=== PATIENT | female | born 1970 | race Caucasian/White ===

== ENCOUNTER 2024-01-19 05:04 | Emergency (ER) | payer BC, SELFPAY ==
[2024-01-19] VITALS (8 sets, daily range): BP systolic 90–124; BP diastolic 65–80; BMI 21.0
--- NOTE | 2024-01-19 07:17 | ED.GENMED ---
History of Present Illness
General
Chief Complaint: Fall
Time Seen by Provider: 01/19/24 07:06
Travel History
Have you had any contact with someone who has COVID-19?: No
Do you have any symptoms of coronavirus? Fever > 100 degrees, chills, cough, shortness of breath, sore throat, loss of taste or smell, muscle aches, or headache?: No
History of Present Illness
History of Present Illness:
53-year-old previously healthy female presents to the emergency department for evaluation of left chest wall and left gluteal pain after falling down multiple carpeted steps last night. Landed directly on the left thoracic back as well as the left
buttock. She is able to ambulate. Pain is somewhat pleuritic in nature, does not radiate toward the front. Does not take any anticoagulants. Denies any head strike.
Review of Systems
Review of Systems
Allergies reviewed?: Yes
All Other Systems: ROS reviewed and negative except as documented in HPI and ROS
Phy Exam
Physical Exam
Physical Exam:
GEN: Well appearing, NAD, WDWN
HEENT: Oral mucosa moist, no scleral icterus
Cardiac: Regular rate and rhythm, no murmurs
Lung: No respiratory distress, no tachypnea, lungs clear to auscultation bilaterally
Chest: No reproducible anterior chest wall tenderness. There is mild tenderness to the left thoracic back with no crepitus or deformities
MSK: No gross deformity or injuries. No midline cervical, thoracic, or lumbar spine tenderness elicited
Skin: Good color, no pallor or jaundice, no rashes
Neuro: AO x3, moves all extremities freely
Psych: Calm, cooperative
Course
Orders/Labs/Results
Orders:
Orders
01/19/24 07:25
CR Pelvis - 1 Or 2 Views Urgent
Reason For Exam: fall
CR Ribs-left 3 Vw W/pa Chest Urgent
Comment:
Reason For Exam: fall, L thoracic/chest injury
01/19/24 08:42
Complete Blood Count/With Diff Urgent
Comprehensive Metabolic Panel Urgent
01/19/24 08:[address] Cervical Spine W/o Iv Contr Urgent
Comment:
Reason For Exam: trauma
CT Head W/o Iv Contrast Urgent
Comment:
Reason For Exam: fall down stairs
Chest/Abd/Pelvis w Contrast CT [CT Chest/abd/pel W Iv Cont] Urgent
Comment:
Reason For Exam: trauma
01/19/24 09:29
HYDROmorphone [Dilaudid] 0.5 mg .ROUTE .STK-MED ONE
Ondansetron Injectable [Zofran] 4 mg .ROUTE .STK-MED ONE
01/19/24 09:31
HYDROmorphone [Dilaudid] 0.5 mg IV NOW STA
Ondansetron Injectable [Zofran] 4 mg IV NOW STA
Abnormal Lab Results
01/19/24
08:42
WBC 11.8 H 10^3/uL
(4.8-10.8)
MPV 12.0 H fL
(7.4-10.4)
Absolute Neuts (auto) 9.3 H 10^3/uL
(1.4-6.5)
Absolute Monos (auto) 0.8 H 10^3/uL
(0.1-0.6)
Neutrophils % 78.7 H %
(42.2-75.2)
Lymphocytes % 13.4 L %
(20.5-51.1)
01/19/24 08:42
01/19/24 08:42
Vital Signs
Initial and Last Documented VS:
Initial Vital Signs
Temp Pulse Resp BP Pulse Ox
97.5 F 64 14 117/78 100
01/19/24 05:07 01/19/24 05:07 01/19/24 05:07 01/19/24 05:07 01/19/24 05:07
Last Documented Vital Signs
Temp Pulse Resp BP Pulse Ox
97.5 F 52 14 122/80 99
01/19/24 05:07 01/19/24 10:00 01/19/24 05:07 01/19/24 10:00 01/19/24 10:00
MDM/Problems Addressed
MDM/Problems Addressed:
After initial series of x-rays radiology informing that there is a small left apical pneumothorax and a questionable left second rib fracture. Discussed the case promptly with trauma surgery at [facility] who accepts the patient as a trauma
transfer to the emergency department. CT scans of the head, cervical spine, and chest abdomen pelvis were requested by trauma surgery, these confirm the diagnosis of small left apical pneumothorax with associated rib fractures. There is no
indication at this time for chest tube as she is clinically stable, not hypoxic, and the pneumothorax is quite small. No other traumatic injuries identified. Remained stable until EMS transfer to [facility]
*Critical Care Note
Total Time (30-74mins, 75-104mins- exclusive of procedures): Not Applicable
ED Attending Note
-
Portions of this chart may have been created with voice recognition software.� Occasional wrong word or��sound alike� substitutions may have occurred due to the inherent limitations of voice recognition software.
Discharge Plan
Departure
Patient Disposition: Acute Care Hospital
Date of Disposition: 01/19/24
Time of Disposition: 08:51
Patient with high blood pressure during this ER visit?: No
Discharge Problem:
Contusion of pelvis, Closed fracture of rib of left side, Pneumothorax
Prescriptions:
No Action
No Current Medications
0
Referrals:
UNKNOWN - PT DOES,NOT KNOW [Family Provider] -
Activity Restrictions/Additional Instructions:
Take 400mg ibuprofen (Motrin/Advil) and 1000mg acetaminophen (tylenol) every 6-8 hours for pain relief
Hospital Transfer
Other hospital: [facility]
I certify that the patient requires transfer: Yes
Discussed case with accepting physician: Brett
Reason for transfer: higher level of care
Interventions
Interventions:
*Risk Screen - Suicide Last Done: 01/19/24 05:07
*General Assessment Last Done: 01/19/24 05:07
*Neglect/Abuse Screening Last Done: 01/19/24 05:07
ED- Fall Risk Assessment Last Done: 01/19/24 08:44
*ED COVID-19 Vaccine History Last Done: 01/19/24 05:54
*Nursing Disposition Last Done: 01/19/24 10:31
ED-Musculoskeletal Assessment Last Done: 01/19/24 09:01
ED- Neurological Assessment Last Done: 01/19/24 07:24
ED-Skin Assessment Last Done: 01/19/24 05:54
Discharge Date and Time
Discharge Date/Time: 01/19/24 10:00
[2024-01-19 08:49] LABS: % Basophils 0.3 % (0-2); % Eosinophils 0.2 % (0-6); % Immature Granulocytes 0.3 % (0-0.5); % Lymphocytes 13.4 % (20.5-51.1); % Monocytes 7.1 % (1.7-9.3); % Neutrophils 78.7 % (42.2-75.2); Absolute Lymphocytes 1.6 10^3/uL (1.2-3.4); Absolute Monocytes 0.8 10^3/uL (0.1-0.6); Absolute Neutrophils 9.3 10^3/uL (1.4-6.5); Hematocrit 39.5 % (37.0-47.0); Hemoglobin 13.5 g/dL (12.0-16.0); Mean Corp Hgb Conc. 34.2 g/dL (33.0-37.0); Mean Corpuscular Hgb 30.2 pg (27.0-31.0); Mean Corpuscular Volume 88.4 fL (81.0-99.0); Nucleated Red Blood Cells % 0 %; Platelet Count 209 10^3/uL (130-400); Red Blood Cell Count 4.47 10^6/uL (4.20-5.40); Red Cell Dist. Width 12.9 % (11.5-14.5); White Blood Cell Count 11.8 10^3/uL (4.8-10.8)
[2024-01-19 08:59] LABS: ALT (SGPT) 21 U/L (0-35); AST (SGOT) 29 U/L (14-36); Albumin 4.3 g/dl (3.5-5.0); Alkaline Phosphatase 70 U/L (38-126); Blood Urea Nitrogen 16 mg/dl (7-17); Calcium 9.4 mg/dl (8.4-10.2); Carbon Dioxide 25 mmol/L (22-30); Chloride 104 mmol/L (98-107); Estimated Creatinine Clearance 109 ml/min; Glucose 93 mg/dl (70-99); Potassium 4.5 mmol/L (3.5-5.1); Sodium 135 mmol/L (135-145); Total Bilirubin 0.6 mg/dl (0.2-1.3); Total Protein 7.2 g/dl (6.3-8.2); eGFR > 60.00
[2024-01-19] MEDS: ZOFRAN 4 MG IV (09:35)
[2024-01-19] MEDS: DILAUDID 0.5 MG IV (09:36)
== END 2024-01-19 10:00 | disposition short-term general hospital (02) ==
LOC: EMR 05:04
PROVIDERS: Physician Assistant; EMERGENCY PHYSICIAN Emergency Medicine
DX: S30.0XXA Contusion of lower back and pelvis, initial encounter (principal); S22.42XA Multiple fractures of ribs, left side, initial encounter for closed fracture; S27.0XXA Traumatic pneumothorax, initial encounter; W10.9XXA Fall (on) (from) unspecified stairs and steps, initial encounter
CPT/HCPCS: 99284; 96374; 96375; 70450; 71101; 71260; 72125; 72170; 74177; 80053; 85025; Q9967